=== PATIENT | female | born 1965 | race Caucasian/White ===

== ENCOUNTER 2020-07-15 04:44 | Outpatient (RCR) | payer BC, SELFPAY ==
[2020-07-15] MEDS: Normal Saline Flush 10 ML SYR IVP (10:30)
[2020-07-15] MEDS: NATALIZUMAB 300 MG in Normal Saline 100 ML 115 MG IV (10:37)
== END 2020-07-20 23:59 | disposition home or self-care (01) ==
LOC: INF 04:44
PROVIDERS: Visit Provider Internal Medicine
DX: G35 Multiple sclerosis (principal)
CPT/HCPCS: 96365; J2323

== ENCOUNTER 2020-08-12 04:30 | Outpatient (RCR) | payer BC, SELFPAY ==
[2020-08-12 11:00] VITALS: BP 131/89; PULSE 64; RESP 17; TEMP 36.7; O2SAT 97
[2020-08-12] MEDS: Normal Saline Flush 10 ML SYR IVP ×2 (11:01→11:10)
[2020-08-12] MEDS: NATALIZUMAB 300 MG in Normal Saline 100 ML 115 MG IV (11:09)
[2020-08-12 12:10] VITALS: BP 155/91; PULSE 61; RESP 17; TEMP 37; O2SAT 98
== END 2020-08-19 23:59 | disposition home or self-care (01) ==
LOC: INF 04:30
PROVIDERS: Visit Provider Internal Medicine
DX: G35 Multiple sclerosis (principal)
CPT/HCPCS: 96365; J2323

== ENCOUNTER 2020-09-16 04:40 | Outpatient (RCR) | payer BC, SELFPAY ==
[2020-08-20 00:25] VITALS: BP 155/91; PULSE 61; RESP 17; TEMP 37
[2020-09-16] MEDS: NATALIZUMAB 300 MG in Normal Saline 100 ML 115 MG IV (12:30)
[2020-09-16] MEDS: Normal Saline Flush 10 ML SYR IVP (12:30)
[2020-09-16 12:40] VITALS: BP 152/84; PULSE 58; RESP 17; TEMP 36.6; O2SAT 97
[2020-09-16 13:35] VITALS: BP 134/81; PULSE 62; RESP 16; TEMP 36.6; O2SAT 99
== END 2020-09-19 23:59 | disposition home or self-care (01) ==
LOC: INF 04:40
PROVIDERS: Visit Provider Internal Medicine
DX: G35 Multiple sclerosis (principal)
CPT/HCPCS: 96365; J2323

== ENCOUNTER 2020-10-14 05:57 | Outpatient (RCR) | payer BC, SELFPAY ==
[2020-09-20 00:20] VITALS: BP 134/81; PULSE 62; RESP 16; TEMP 36.6
[2020-10-14 11:08] VITALS: BP 135/90; PULSE 65; RESP 16; TEMP 36.6; O2SAT 100
[2020-10-14] MEDS: NATALIZUMAB 300 MG in Normal Saline 100 ML 115 MG IV (11:14)
[2020-10-14] MEDS: Normal Saline Flush 10 ML SYR IVP (11:14)
[2020-10-14 12:16] VITALS: BP 133/88; PULSE 62; RESP 16; TEMP 36.9; O2SAT 99
== END 2020-10-19 23:59 | disposition home or self-care (01) ==
LOC: INF 05:57
PROVIDERS: Visit Provider Internal Medicine
DX: G35 Multiple sclerosis (principal)
CPT/HCPCS: 96365; J2323

== ENCOUNTER 2020-12-09 04:29 | Outpatient (RCR) | payer OTHER, SELFPAY ==
[2020-11-20 00:06] VITALS: BP 133/88; PULSE 62; RESP 16; TEMP 36.9
[2020-12-09] MEDS: Normal Saline Flush 10 ML SYR IVP (13:35)
[2020-12-09] MEDS: NATALIZUMAB 300 MG in Normal Saline 100 ML 115 MG IV (13:42)
== END 2020-12-20 23:59 | disposition home or self-care (01) ==
LOC: INF 04:29
PROVIDERS: PCP Family Medicine Adult Medicine; Visit Provider Internal Medicine
DX: G35 Multiple sclerosis (principal)
CPT/HCPCS: 36415; 96365; J2323

== ENCOUNTER 2021-01-20 02:47 | Outpatient (RCR) | payer OTHER, SELFPAY ==
[2020-12-21 00:05] VITALS: BP 133/88; PULSE 62; RESP 16; TEMP 36.9
[2021-01-20] MEDS: Normal Saline Flush 10 ML SYR IVP (09:18)
[2021-01-20 09:30] VITALS: BP 143/91; PULSE 59; RESP 16; TEMP 36.6; O2SAT 100
[2021-01-20] MEDS: NATALIZUMAB 300 MG in Normal Saline 100 ML 115 MG IV (09:30)
[2021-01-20 10:41] VITALS: BP 170/101; PULSE 71; RESP 16; TEMP 36.5; O2SAT 100
[2021-01-20 11:01] VITALS: BP 142/92; BP 152/104; PULSE 70; RESP 16; TEMP 36.6; O2SAT 100
== END 2021-02-19 23:59 | disposition home or self-care (01) ==
LOC: INF 02:47
PROVIDERS: PCP Family Medicine Adult Medicine; Visit Provider Internal Medicine
DX: G35 Multiple sclerosis (principal)
CPT/HCPCS: 96365; J2323

== ENCOUNTER 2021-03-10 02:21 | Outpatient (RCR) | payer OTHER, SELFPAY ==
[2021-02-20 00:02] VITALS: BP 142/92; PULSE 70; RESP 16; TEMP 36.6
[2021-03-10 10:17] VITALS: BP 136/84; PULSE 88; RESP 17; O2SAT 99
[2021-03-10] MEDS: NATALIZUMAB 300 MG in Normal Saline 100 ML 115 MG IV (10:29)
[2021-03-10] MEDS: Normal Saline Flush 10 ML SYR IVP (10:30)
[2021-03-10 11:35] VITALS: BP 150/84; RESP 17
== END 2021-03-21 23:59 | disposition home or self-care (01) ==
LOC: INF 02:21
PROVIDERS: PCP Family Medicine Adult Medicine; Visit Provider Internal Medicine
DX: G35 Multiple sclerosis (principal)
CPT/HCPCS: 96365; J2323

== ENCOUNTER 2021-04-20 02:52 | Outpatient (RCR) | payer OTHER, SELFPAY ==
[2021-03-22 00:01] VITALS: BP 150/84; PULSE 88; RESP 17; TEMP 36.6
[2021-04-20 10:40] VITALS: BP 138/70
[2021-04-20] MEDS: Normal Saline Flush 10 ML SYR IVP (10:42)
[2021-04-20] MEDS: NATALIZUMAB 300 MG in Normal Saline 100 ML 115 MG IV (10:51)
[2021-04-20 11:55] VITALS: BP 163/73
== END 2021-04-21 23:59 | disposition home or self-care (01) ==
LOC: INF 02:52
PROVIDERS: PCP Family Medicine Adult Medicine; Visit Provider Internal Medicine
DX: G35 Multiple sclerosis (principal)
CPT/HCPCS: 96365; J2323

== ENCOUNTER 2021-06-09 00:51 | Outpatient (RCR) | payer MEDICAID, SELFPAY ==
[2021-04-22 00:13] VITALS: BP 163/73; PULSE 88; RESP 17; TEMP 36.6
[2021-06-09 10:05] VITALS: BP 130/80
[2021-06-09] MEDS: NATALIZUMAB 300 MG in Normal Saline 100 ML 115 MG IV (10:10)
[2021-06-09] MEDS: Normal Saline Flush 10 ML SYR IVP (10:11)
[2021-06-09 11:20] VITALS: BP 132/84
== END 2021-06-19 23:59 | disposition home or self-care (01) ==
LOC: INF 00:51
PROVIDERS: PCP Family Medicine Adult Medicine; Visit Provider Internal Medicine
DX: G35 Multiple sclerosis (principal)
CPT/HCPCS: 96365; J2323

== ENCOUNTER 2021-07-28 01:12 | Outpatient (RCR) | payer MEDICAID, SELFPAY ==
[2021-07-28 11:33] VITALS: BP 142/78
[2021-07-28] MEDS: NATALIZUMAB 300 MG in Normal Saline 100 ML 115 MG IV (11:42)
[2021-07-28] MEDS: Normal Saline Flush 10 ML SYR IVP (11:42)
[2021-07-28 12:45] VITALS: BP 128/80
== END 2021-08-19 23:59 | disposition home or self-care (01) ==
LOC: INF 01:12
PROVIDERS: PCP Family Medicine Adult Medicine; Visit Provider Internal Medicine
DX: G35 Multiple sclerosis (principal)
CPT/HCPCS: 96365; J2323

== ENCOUNTER 2021-09-08 01:55 | Outpatient (RCR) | payer MEDICAID, SELFPAY ==
[2021-08-20 00:05] VITALS: BP 128/80
[2021-09-08 09:05] VITALS: BP 136/60
[2021-09-08] MEDS: NATALIZUMAB 300 MG in Normal Saline 100 ML 115 MG IV (09:10)
[2021-09-08] MEDS: Normal Saline Flush 10 ML SYR IVP (09:10)
[2021-09-08 10:19] VITALS: BP 128/62
== END 2021-09-19 23:59 | disposition home or self-care (01) ==
LOC: INF 01:55
PROVIDERS: PCP Family Medicine Adult Medicine; Visit Provider Internal Medicine
DX: G35 Multiple sclerosis (principal)
CPT/HCPCS: 96365; J2323

== ENCOUNTER 2021-10-20 02:01 | Outpatient (RCR) | payer MEDICAID, SELFPAY ==
[2021-09-20 00:03] VITALS: BP 128/62
--- OUTSIDE RECORDS SUMMARY | 2021-10-20 02:03 | XMS_ITS | Encounter Summary ---
:1965 Author Organization [facility] [place] [address] Care Team Providers Name Role Phone Steve Saavedra APRN Primary Care Provider [phone] Reason for Visit Reason Onset Date Comments Prior Authorization 07/19/2021 Tysabri Encounter Details Date Type Department Care Team Description 07/19/2021 Telephone Neurology at [facility] Azar Hope, Prior Authorization [facility] (Jemma) [place] [address] NEUROLOGY DEPT. [place], [place] [address] Social History Tobacco Use Types Packs/Day Years Used Date Former Smoker 0.25 10 Quit: 05/23/19 21 Smokeless Tobacco: Never Used Sex Assigned at Date Recorded Not on file documented as of this encounter Miscellaneous Notes Telephone Encounter - Eloise Guo RN - 07/20/2021 2:07 PM EDT PA approval faxed to [facility] on 07/20/21 to fax number [phone]. Telephone Encounter - Eloise Guo RN - 07/20/2021 1:51 PM EDT I phoned Kassidy at [facility] and informed her of approval of Tysabri. I will fax approval over to her once received. Kassidy very thankful. Telephone Encounter - Eloise Guo RN - 07/20/2021 1:51 PM EDT I phoned Twila and informed her of approval of Tysabri. She is very pleased and very thankful. She will call to schedule infusion. Telephone Encounter - Eloise Guo RN - 07/20/2021 1:50 PM EDT Chuck from [place] [employer] phoned back. She states she passed my information along to the pharmacist who reviewed with the medical affairs director and they have approved the Tysabri infusions. Chuck states that she will fax approval over to [phone]. Telephone Encounter - Eloise Guo RN - 07/20/2021 1:46 PM EDT I phoned back Chuck at [place] [employer] regarding PA for Tysabri. I left message on named voice mail asking Chuck talk further with Pharmacist or whomever is denying pt's tysabri. I asked that she let them know that Tysabri should not be stopped abruptly as this could cause her MS relapse symptoms to return and in some cases the symptoms can be worse than before starting the Tysabri. I also left message stating that it can take a month or longer to start a new medication and that with Gilenya it could be even longer because there is strict testing that needs to be done prior to starting (lab work, eye exam, EKG). Message left asking Chuck to discuss further per above. Plan: as above and message left to call back [phone]. Telephone Encounter - Eloise Guo RN - 07/20/2021 12:18 PM EDT Pt phoned back and left message on triage line. She is still very upset over the insurance issue with her jemma. She was scheduled for visit with Dr. Hope 08/04 but feels this is way too long to wait and would like to discuss with much sooner. She also feels that Dr. Hope should be fighting for her with the insurance. Plan: I will forward to Dr. Hope. Telephone Encounter - Eloise Guo RN - 07/20/2021 9:14 AM EDT I had phoned and left pt detailed message after speaking with the insurance. Pt called back and I spoke with her today. She is very upset and refuses to go on oral medication. she stated I would rather go without. She states she looked up the medications and the side effects.She wants a peer to peer to be done. I explained that would need to do this and I did notthink it would make a difference. She wants us to try anyway. I told her she will need to discuss with Dr. Hope. I also recommended she call her insurance to discuss further as they are determining what they will and will not pay for. She is also concerned because she is due today for her infusion. I did send message to Dr. Hope so he is aware and said oral medications are an option and he willdiscuss with her. He is aware she was due today for her infusion. Plan: as above and message forwarded to scheduling departmental secretary to reach out to pt and get visit scheduled. I also phoned [facility] infusion clinic and spoke with Kassidy glass her. She is thankful for call back and update. Telephone Encounter - Eloise Guo RN - 07/19/2021 4:01 PM EDT Chuck from [facility] phoned back. She asks if pt has tried and failed tecfidera, aubagio, or gilenya and stated that gilenya is a requirement unless there is a contraindication. She then asked if pt has highly active RRMS that would require immediate treatment. Message forwarded to Dr. Hope for review and recommendation. Telephone Encounter - Eloise Guo RN - 07/19/2021 3:09 PM EDT Chuck phoned back requiring more information. Perk 12/02/20 note: HPI- In 2002 she started having panic attacks. In March 2004 she had some difficulties walkingand was told by her neurologist in [place], [place], , that she had MS based on her MRIs and confirmed with an LP. She was started on Avonex and one year later had another attack and was switched to Rebif. From 2004 until 2012 she was treated with Rebif and then was put on Tysabri. She has been on Tysabri once a month. Pt also has RRMS. Information given to Chuck and she will report back to insurance pharmacist and get back to me. Telephone Encounter - Eloise Guo RN - 07/19/2021 2:34 PM EDT Chuck from [facility] phoned back. She needed to verify start date. They are unable to approve anything done in May. Chuck informed that pt is scheduled for infusion tomorrow. She will forward to next staff for review and get back to me but feels this will be approved 07/19/21 - 01/19/22 # 5 visits. Will wait for call back. Telephone Encounter - Eloise Guo RN - 07/19/2021 2:19 PM EDT I phoned Mickie back. She states that the pharmacist Chuck from [facility] is waiting to hear from me.I explained I have not received any fax or call from Chuck. Mickie states number to call is [phone]. I attempted to phone chuck back at above number. There was no answer. Message left named voice mail to call back [phone]. Telephone Encounter - Arcelia Paris - 07/19/2021 2:17 PM EDT Mickie is looking to get a call back from Eloise Guo RN regarding the prior authorization for Twila. Mickie states she will be in the office until 230pm today. Telephone Encounter - Eloise Guo RN - 07/19/2021 11:33 AM EDT I phoned Mickie back at [facility]. I informed her PA has been submitted and marked urgent. Mickie statesluis will help with this and will also give insurance a call. Plan; as above and I will update Mickie as able. Telephone Encounter - Frank Seals - 07/19/2021 11:18 AM EDT Mickie, [facility] Infusion Room stated she is returning a call to Amber. Mickie stated she would like to help with the PA for this patient and would like Amber to call her at [phone] when she has a moment. Telephone Encounter - Betsy Pagan - 07/19/2021 9:51 AM EDT Patient is calling in stating that she needs her infusion tomorrow, but infusion center is refusing stating that our office did not send a prior auth. Patient is very irate and would like to speak withsomeone right away. Please call to advise. documented in this encounter Plan of Treatment Upcoming Encounters Date Type Specialty Care Team Description 10/30/2021 Appointment Radiology Azar Hope MD [facility] NEUROLOGY DEPT. [place], [place] [address] (Wo rk) 11/17/2021 Office Visit Neurology Azar Hope MD [facility] NEUROLOGY DEPT. [place], [place] [address] (Wo rk) documented as of this encounter Visit Diagnoses Not on filedocumented in this encounter Care Teams Sales Consultant Residential Manager Relationship Specialty Start Date End Date Steve Saavedra APRN PCP - General Family Medicine 10/04/20 [address] [place] [address] documented as of this encounter
--- OUTSIDE RECORDS SUMMARY | 2021-10-20 02:03 | XMS_ITS | Encounter Summary ---
:1965 Author Organization [facility] [place] [address] Care Team Providers Name Role Phone Steve Saavedra APRN Primary Care Provider [phone] Reason for Visit Reason Onset Date Comments Prior Authorization 07/19/2021 Jemma FELIZ Encounter Details Date Type Department Care Team Description 07/19/2021 Telephone Neurology at [facility] Azar Hope, Prior Authorization [facility] (Jemma F[place]IZ) [place] [address] NEUROLOGY DEPT. [place], [place] [address] Social History Tobacco Use Types Packs/Day Years Used Date Former Smoker 0.25 10 Quit: 05/23/19 21 Smokeless Tobacco: Never Used Sex Assigned at Date Recorded Not on file documented as of this encounter Miscellaneous Notes Telephone Encounter - Eloise Guo RN - 07/19/2021 4:03 PM EDT See other telephone note from today. It is regarding Jemma FELIZ. I have been communication with insurance. See previous note as well. Telephone Encounter - Francia Girard - 07/19/2021 3:37 PM EDT Copied from CRM #[id number]. Topic: Specialty Dept CRMs - Prior Auth Non-Med >> Jul 19, 2021 9:46 AM Kamille Sultana wrote: Prior Auth Non Agricultural Agent Jayy Relationship (if other than patient-full name): Twila Sapp Test Name/Type of Infusion (Copy and Paste from e-DH): Jemma Name of Facility that Test/Infusion will be Done At: [facility] infusion clinic City/Town & State of Facility: [address] [place], [place] [address] Date test is scheduled for infusion scheduled for tomorrow 07/20/21 When is PA needed bytoday Name of Medical Insurance Carrier: [place] [facility] Insurance Carrier ID #: [id number] Insurance Carrier Phone #: not in chart Patient informed of the 7 to 10 business day turnaround time. >> Jul 19, 2021 12:15 PM Alisia Caputo wrote: Sarah from [place] [employer] calling to speak with Amber regarding PA. She states she received it,but has a question. Amber unavailable at time of call. Please return call to Amber's direct line [phone] Telephone Encounter - Eloise Guo RN - 07/19/2021 11:06 AM EDT Jemma FELIZ completed on PA standard request form and marked urgent and faxed back to [place] [employer] on 07/19/21. documented in this encounter Plan of Treatment Upcoming Encounters Date Type Specialty Care Team Description 10/30/2021 Appointment Radiology Azar Hope MD [facility] NEUROLOGY DEPT. [place], [place] [address] (Wo wilver) 11/17/2021 Office Visit Neurology Azar Hope MD [facility] NEUROLOGY DEPT. [place], [place] [address] (Bart pettit) documented as of this encounter Visit Diagnoses Not on filedocumented in this encounter Care Teams Learning Technologies Specialist Relationship Specialty Start Date End Date Steve Saavedra APRN PCP - General Family Medicine 10/04/20 [address] [place] [address] documented as of this encounter
--- OUTSIDE RECORDS SUMMARY | 2021-10-20 02:03 | XMS_ITS | Encounter Summary ---
:1965 Author Organization [place] [address] Care Team Providers Name Role Phone Steve Saavedra APRN Primary Care Provider [phone] Reason for Visit Reason Onset Date Comments Other 07/26/2021 Tysabri Support [place] herring Encounter Details Date Type Department Care Team Description 07/26/2021 Telephone Neurology at [facility] Azar Hope, Other ( [facility] MD Services) [place] [address] NEUROLOGY DEPT. [place], [place] [address] (Wo rk) Social History Tobacco Use Types Packs/Day Years Used Date Former Smoker 0.25 10 Quit: 05/23/19 21 Smokeless Tobacco: Never Used Sex Assigned at Date Recorded Not on file documented as of this encounter Miscellaneous Notes Telephone Encounter - Eloise Guo RN - 07/26/2021 1:[address] Jayy elaine to complete and submit reauthorization questionnaire on line. This has been completed and submitted 07/26/21. Telephone Encounter - Emeli Noble RN - 07/26/2021 9:59 AM EDT Copied from CRM #[id number]. Topic: Specialty Dept CRMs - Form Request >> Jul 26, 2021 9:20 AM Reena Seals wrote: Patient is requesting to have form completed Specialist Azar Hope MD Relationship (if other than patient-full name): [place] - Jemma Support Services Type of paperwork: Tysabri reauthorization questionaire Provider: Azar Hope MD Faxed to (what number): [phone] When does patient need to have form completed by: 08/06/2021 - but required as soon as possible for discussion points. After completion please: Fax to: [phone] documented in this encounter Plan of Treatment Upcoming Encounters Date Type Specialty Care Team Description 10/30/2021 Appointment Radiology Azar Hope MD [facility] NEUROLOGY DEPT. [place], [place] [address] (Wo rk) 11/17/2021 Office Visit Neurology Azar Hope MD [facility] NEUROLOGY DEPT. [place], [place] [address] (Wo rk) documented as of this encounter Visit Diagnoses Not on filedocumented in this encounter Care Teams Apple Press Operator Relationship Specialty Start Date End Date Steve Saavedra APRN PCP - General Family Medicine 10/04/20 [address] [place] [address] documented as of this encounter
--- OUTSIDE RECORDS SUMMARY | 2021-10-20 02:03 | XMS_ITS | Encounter Summary ---
:1965 Author Organization [facility] [place] [address] Care Team Providers Name Role Phone Steve Saavedra APRN Primary Care Provider [phone] Reason for Visit Reason Onset Date Comments Other 07/21/2021 Tysabri infusionorde rs Encounter Details Date Type Department Care Team Description 07/21/2021 Telephone [place] [facility] [place], Other ([facility] MD infusionorders) [place] [address] NEUROLOGY DEPT. [place], [place] [address] (Wo rk) Social History Tobacco Use Types Packs/Day Years Used Date Former Smoker 0.25 10 Quit: 05/23/19 21 Smokeless Tobacco: Never Used Sex Assigned at Date Recorded Not on file documented as of this encounter Miscellaneous Notes Telephone Encounter - Eloise Guo RN - 07/21/2021 1:26 PM EDT Tysabri infusion orders faxed to: [facility] clinic for Tysabri infusions Faxed on 07/21/21 I phoned infusion clinic and advised them orders on way over. Plan: as above and no further action required at this time. documented in this encounter Plan of Treatment Upcoming Encounters Date Type Specialty Care Team Description 10/30/2021 Appointment Radiology Azar Hope MD [facility] NEUROLOGY DEPT. [place], [place] [address] (Wo rk) 11/17/2021 Office Visit Neurology Azar Hope MD [facility] NEUROLOGY DEPT. [place], [place] [address] (Wo rk) documented as of this encounter Visit Diagnoses Not on filedocumented in this encounter Care Teams President Mortgage Company Relationship Specialty Start Date End Date Steve Saavedra APRN PCP - General Family Medicine 10/04/20 [address] [place] [address] documented as of this encounter
--- OUTSIDE RECORDS SUMMARY | 2021-10-20 02:04 | XMS_ITS | Encounter Summary ---
:1965 Author Organization [facility] Address [facility] [address] [place] [address] Care Team Providers Name Role Phone Steve Saavedra APRN Primary Care Provider [phone] Reason for Visit Reason Onset Date Comments Questions 06/01/2021 Encounter Details Date Type Department Care Team Description 06/01/2021 Telephone Neurology at [facility] Azar Hope MD Questions [facility] summa healthe [facility] [place] [address] NEUROLOGY DEPT. [phone] [place], [place] [address] (Wo rk) Social History Tobacco Use Types Packs/Day Years Used Date Former Smoker 0.25 10 Quit: 05/23/19 21 Smokeless Tobacco: Never Used Sex Assigned at Date Recorded Not on file documented as of this encounter Miscellaneous Notes Telephone Encounter - Eloise Guo RN - 06/01/2021 3:21 PM EST I attempted to phone pt back. There was no answer. Message left on infusion line to call back [phone]. Telephone Encounter - Frank Seals - 06/01/2021 9:57 AM EST Call Center / [place] Message - General Issue Call Provider patient sees in Clinic: Azar Hope Caller and relationship (if other than patient-full name): n/a Company and position if other than patient or family: [facility]assidy [facility] infusion clinic Call back number: [phone] Ok to leave a message: yes Reason for call: Kassidy stated the last time she spoke with the Pt the Pt stated in April she would be getting new insurance and gave Kassidy a new member number. Kassidy stated she check the Pt's chart and noticed the insurance has not changed and she is wondering if the clinic has had any co nversations with the Pt regarding a change in insurance as a new PA will need to be done if there balta change. Please call Kassidy to discuss. Disposition of Call (choose one and remove others): ??? Routine Message sent to the Nurse Nurse/Purchasing Analyst contacted via: Message: y Call: n Pager: n documented in this encounter Plan of Treatment Upcoming Encounters Date Type Specialty Care Team Description 10/30/2021 Appointment Radiology Azar Hope MD [facility] NEUROLOGY DEPT. [place], [place] [address] (Wo rk) 11/17/2021 Office Visit Neurology Azar Hope MD [facility] NEUROLOGY DEPT. [place], [place] [address] (Wo rk) documented as of this encounter Visit Diagnoses Not on filedocumented in this encounter Care Teams Telephone Order Clerk Room Service Relationship Specialty Start Date End Date Steve Saavedra APRN PCP - General Family Medicine 10/04/20 [address] [place] [address] documented as of this encounter
--- OUTSIDE RECORDS SUMMARY | 2021-10-20 02:04 | XMS_ITS | Encounter Summary ---
:1965 Author Organization [facility] Address [address] [place] [address] Care Team Providers Name Role Phone Unknown, Provider Primary Care Provider Encounter Details Date Type Department Care Team Description 04/04/2021 Lab Requisition [facility] Sam Morocho Encounter for Pathology & MD Quan screening for Laboratory Medicine [address] of colon [address] [place] [address] [phone] Social History Tobacco Use Types Packs/Day Years Used Date Never Assessed Sex Assigned at Date Recorded Not on file documented as of this encounter Plan of Treatment Not on filedocumented as of this encounter Procedures Procedure Name Priority Date/Time Associated Diagnosis Comme nts SURGICAL PATHOLOGY Today 04/04/2021 8:03 EST Encounter for R esults for this screening for procedure are in malignant neoplasm the resul ts of colon section. documented in this encounter Results SURGICAL PATHOLOGY (04/04/2021 8:03 EST) Note to Patient The following [facility] MEDICAL pathology results CENTER have been interpreted LABORATORY by your pathologist SERVICES and may be available to you before your health provider has had the opportunity to review them. Please allow time for your provider to receive these results and explore management options, if applicable. Final Diagnosis A. 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 CENTER LABORATORY B. COLON, DESCENDING, POLYP, BIOPSY: SERV ICES - Tubular adenoma. - Deeper sections x3 examined. Attestation There was significant [facility] MEDICAL Electr onically resident/fellow CENTER signed by Ab colton Perdue involvement in the LABORATORY Arleen Head on diagnostic evaluation SERVICES 2020 at 0930 of this case. By the signature below, the attending physician certifies that they have personally conducted a gross and/or microscopic examination of the described specimens and rendered or confirmed the above diagnosis. Clinical History Screening [facility] MEDICAL colonoscopy; clinical CENTER diagnosis code: LABORATORY Z12.11 SERVICES Gross Description A. [facility] MEDICAL Received in formalin aur[place] d with proper patient identification (initials S, J) and transverse colon polyp, hot snare is a betancourt-pink lobulated polypoid structure measuring 2.7 x 0.4 x 0.3 cm. Specimen CENTER is serially sectioned and submitted entirely in A1-A2 . LABORATORY SERVICES B. Received in formalin aurora d with proper patient identification (initials S, J) and descending colon polyp, cold bx forcep is a light betancourt tissue measuring 0.3 x 0.2 x 0.1 cm. Submitted intact in B1. TRINI PAGE(ASCP) 04/04/2021 19:00 Resident/Fellow: Damien Wing, [facility] LABORATORY SERVICES Performing Lab [facility] LAB [facility] LABORATORY SERVICES Scanned Images [facility] LABORATORY SERVICES Specimen Tissue - Descending colon structure (bod y structure) Tissue specimen (specimen) - Descending colon structure (body structure) Performing Organization Address City/State/ZIP Code Phon e Number [facility] LABORATORY [address] [place] [address] SERVICES documented in this encounter Visit Diagnoses Diagnosis Encounter for screening for malignant ne oplasm of colon Special screening for malignant neoplasm s, colon documented in this encounter Care Teams Events Manager Relationship Specialty Start Date End Date Unknown, Provider, PCP - General 02/20/21 documented as of this encounter
--- OUTSIDE RECORDS SUMMARY | 2021-10-20 02:04 | XMS_ITS | Encounter Summary ---
:1965 Author Organization [facility] [place] [address] Care Team Providers Name Role Phone Steve Saavedra APRN Primary Care Provider [phone] Reason for Visit Reason Onset Date Comments Request For Record 10/28/2020 Encounter Details Date Type Department Care Team Description 10/28/2020 Telephone [place]rology [place] [facility] Azar Hope MD Request For Record [facility] [place] [address] NEUROLOGY DEPT. [phone] [place], [place] [address] (Wo rk) Social History Tobacco Use Types Packs/Day Years Used Date Never Assessed Sex Assigned at Date Recorded Not on file documented as of this encounter Miscellaneous Notes Telephone Encounter - Monica Ferguson - 10/28/2020 3:58 PM EDT Patient stated her last Tysabri infusion was on 10/14/2020 She had her MRI done at [facility] in [place], [place]. She said she has a copy that she will bring to her appt, or we are welcome to contact them for a copy. Telephone Encounter - Stella Carmichael - 10/28/2020 3:06 PM EDT Patient has an upcoming appointment scheduled with Dr. Hope. Patient contacted to identify when her last Tysabri infusion was, per the request of Dr. Hope. Patient to also confirm where MRI Brain and Spine imaging has been performed. I requested imaging from [facility]. documented in this encounter Plan of Treatment Upcoming Encounters Date Type Specialty Care Team Description 10/30/2021 Appointment Radiology Azar Hope MD [facility] NEUROLOGY DEPT. [place], [place] [address] (Wo rk) 11/17/2021 Office Visit Neurology Azar Hope MD [facility] NEUROLOGY DEPT. [place], [place] [address] (Wo rk) documented as of this encounter Visit Diagnoses Not on filedocumented in this encounter Care Teams Dispatcher Bus [employer] Trol[employer] Relationship Specialty Start Date End Date Steve Saavedra APRN PCP - General Family Medicine 10/04/20 [address] [place] [address] documented as of this encounter
--- OUTSIDE RECORDS SUMMARY | 2021-10-20 02:04 | XMS_ITS | Encounter Summary ---
:1965 Author Organization [facility] [place] [address] Care Team Providers Name Role Phone Steve Saavedra APRN Primary Care Provider [phone] Reason for Visit Reason Onset Date Comments Medication Refill 12/30/2020 Encounter Details Date Type Department Care Team Description 12/30/2020 Telephone Neurology at [facility] Azar Hope MD Medication Refill [facility] [place] [address] NEUROLOGY DEPT. [phone] [place], [place] [address] (Wo rk) Social History Tobacco Use Types Packs/Day Years Used Date Former Smoker 0.25 10 Quit: 05/23/19 21 Smokeless Tobacco: Never Used Sex Assigned at Date Recorded Not on file documented as of this encounter Miscellaneous Notes Telephone Encounter - Eloise Guo RN - 12/30/2020 9:53 AM EDT New prescription generated for provider review and signature. Telephone Encounter - Nida Valle - 12/30/2020 9:19 AM EDT Call Center / Rotor Assembler Message Prescription Refill Request Clinical Rotor Assembler message Provider patient sees in Clinic: Jayy Caller and relationship (if other than patient-full name): self Call back Number: [phone] Ok to leave a message: Any issues needing to be addressed prior to medication refill? (ex: dose increase, not at pharmacy): Name of Med: baclofen (Lioresal) 10 mg Tablet Strength of Pills: 10 mg Dosing Directions: take 2 tablets by mouth every morning 1 tablet AT NOON and 2 at bedtime How Patient is Currently Taking Medication: as directed 30 or 90 Day Supply: 30 [facility]: [facility] Last Appointment: Next Appointment: 03-10-2021 Is Patient out of Medication?: yes documented in this encounter Plan of Treatment Upcoming Encounters Date Type Specialty Care Team Description 10/30/2021 Appointment Radiology Azar Hope MD [facility] NEUROLOGY DEPT. [place], [place] [address] (Wo rk) 11/17/2021 Office Visit Neurology Azar Hope MD [facility] NEUROLOGY DEPT. [place], [place] [address] (Wo rk) documented as of this encounter Visit Diagnoses Not on filedocumented in this encounter Care Teams Marketing Designer Relationship Specialty Start Date End Date Steve Saavedra APRN PCP - General Family Medicine 10/04/20 [address] [place] [address] documented as of this encounter
--- OUTSIDE RECORDS SUMMARY | 2021-10-20 02:04 | XMS_ITS | Encounter Summary ---
:1965 Author Organization [facility] [place] [address] Care Team Providers Name Role Phone Unavailable Primary Care Provider Unavailable Encounter Details Date Type Department Care Team Description 03/08/2018 Ancillary Procedure Radiology Library at Lul Hope [facility] [address] NEUROLOGY DEPT. [phone] [place], [place] [address] (Wo rk) Social History Tobacco Use Types Packs/Day Years Used Date Never Assessed Sex Assigned at Date Recorded Not on file documented as of this encounter Plan of Treatment Upcoming Encounters Date Type Specialty Care Team Description 10/30/2021 Appointment Radiology Azar Hope MD [facility] NEUROLOGY DEPT. [place], [place] [address] (Wo rk) 11/17/2021 Office Visit Neurology Azar Hope MD [facility] NEUROLOGY DEPT. [place], [place] [address] (Wo rk) documented as of this encounter Procedures Procedure Name Priority Date/Time Associated Diagnosis Comme nts FILM LIBRARY Routine 03/08/2018 12:00 AM Results for this STORAGE ONLY MR EST procedure ar e in HEAD the results section. documented in this encounter Results Film Library- Storage Only MR Head (03/08/2018 12:00 AM EST) Specimen (Source) Anatomical Location Collection Method / Collectio n Time Received Time / Laterality Volume Narrative RAD - 05/01/2021 3:36 PM EST This exam is auto-finalizing. It's purpo se is for storage only. Azar Hope MD IMG FILM LIBRARY ORDERABLES Performing Organization Address City/State/ZIP Code Phon e Number RAD EL[facility] [place], [place] documented in this encounter Visit Diagnoses Not on filedocumented in this encounter
--- OUTSIDE RECORDS SUMMARY | 2021-10-20 02:04 | XMS_ITS | Encounter Summary ---
:1965 Author Organization [facility] Address [facility] [place] [address] Care Team Providers Name Role Phone Steve Saavedra APRN Primary Care Provider [phone] Reason for Visit Reason Onset Date Comments TeleHealth 02/01/2021 Encounter Details Date Type Department Care Team Description 02/01/2021 Telephone Neurology at [facility] [place] [address] NEUROLOGY DEPT. [phone] [place], [place] [address] (Wo rk) Social History Tobacco Use Types Packs/Day Years Used Date Former Smoker 0.25 10 Quit: 05/23/19 21 Smokeless Tobacco: Never Used Sex Assigned at Date Recorded Not on file documented as of this encounter Miscellaneous Notes Telephone Encounter - Mayelin Jeffers RN - 02/01/2021 11:38 AM EDT Spoke to this patient??by phone to review??their??medications and allergies prior to their??upcomingtele-appointment with the Neurology??provider. ??Medications and allergies reviewed, verified and updated as needed. documented in this encounter Plan of Treatment Upcoming Encounters Date Type Specialty Care Team Description 10/30/2021 Appointment Radiology Azar Hope MD [facility] NEUROLOGY DEPT. [place], [place] [address] (Wo rk) 11/17/2021 Office Visit Neurology Azar Hope MD [facility] NEUROLOGY DEPT. [place], [place] [address] (Wo rk) documented as of this encounter Visit Diagnoses Not on filedocumented in this encounter Care Teams Math Interventionist Relationship Specialty Start Date End Date Steve Saavedra APRN PCP - General Family Medicine 10/04/20 [address] [place] [address] documented as of this encounter
--- OUTSIDE RECORDS SUMMARY | 2021-10-20 02:04 | XMS_ITS | Encounter Summary ---
:1965 Author Organization [facility] [place] [address] Care Team Providers Name Role Phone Steve Saavedra APRN Primary Care Provider [phone] Encounter Details Date Type Department Care Team Description 06/27/20[facility] cosmetic procedure [address] [place] [address] [facility]DER[facility] [place], [place] [address] Social History Tobacco Use Types Packs/Day Years Used Date Former Smoker 0.25 10 Quit: 05/23/19 21 Smokeless Tobacco: Never Used Sex Assigned at Date Recorded Not on file documented as of this encounter Progress Notes Adriana Davenport MD - 06/27/2021 9:40 AM EST Images from the original note were not included. DEPARTMENT OF DERMATOLOGY Medical Dermatology Clinic Provider: Adriana Davenport MD Patient's preferred name Sangita Preferred contact method for results [x]Phone []myD-H []Letter Detailed phone message OK? Yes Are there any other people with whom we may discuss your care? Yes Past Medical History Date, location, treatment Melanoma No Dysplastic nevi No SCC No BCC No AKs No UV Exposure & Protection + history of blistering sunburn Other relevant past medical history No Family History Details - Unknown Adopted Melanoma [facility] Other relevant family history Social History Occupation: Works from home Hobbies: Other: Pre-Procedure Screening Details Allergy to lidocaine, epinephrine, Dermabond, chlorhexidine, or adhesives No Bleeding disorder or blood thinners No Implanted devices (Pacemaker, defibrillator, deep brain stimulator, cochlear implant) No History of Present Illness: Twila Sapp is a 55 y.o. Patient returns to clinic today for SK removal. Last visit at Dermatology: 11/10/2020 Last visit with this provider: 11/10/2020 Medications: Reviewed in eD-H Allergies: Reviewed in eD-H Skin Examination: Focused skin examination of the face was normal with the exception of the findings below. Assessment/Plan #. Seborrheic Keratoses - Stuck on, waxy papules on the bilateral cheeks - Discussed benign nature of lesions and provided reassurance. No treatment necessary at this time. - Patient elects to proceed with cryotherapy cosmetically today. Procedure: Destruction of lesion(s) with cryotherapy (LN2). Location(s): As noted above Number: 10 Discussed procedure and expectations including risks and benefits. Verbal consent obtained. Treated with LN2. There were no complications; Patient tolerated the procedure well. Post-procedure expectations and wound care were reviewed. -Paid $100 Other: ??? N/A RTC: PRN - Patient paid $100 today for SK removal []Note routed to alumnae secretary []Recall placed in scheduling system []Appointment scheduled at checkout Scribe attestation: Shahnaz Childs [facility] has performed the documentation for this encounter in the presence of and acting as a scribe for Adriana Davenport MD. I performed the above scribed service and agree with the accuracy of the documentation in this encounter. Reviewed and signed by: Adriana Davenport MD Dermatology [facility] Patient seen and evaluated with staff land title examiner: Everardo Joy MD Dermatology [facility] Everardo Joy MD - 06/27/2021 9:40 AM EST I directly supervised Dr. Davenport during this office visit. Dr. Davenport presented the history and physical exam to me. I, then, saw and examined this patient with Dr. Davenport . We reviewed the history and pertinent details and I confirmed the physical findings. I agree with the details of the history and physical exam as documented in Dr. Davenport's note. EVERARDO JOY MD Staff Physician documented in this encounter Plan of Treatment Upcoming Encounters Date Type Specialty Care Team Description 10/30/2021 Appointment Radiology Azar Hope MD [facility] NEUROLOGY DEPT. [place], [place] [address] (Wo rk) 11/17/2021 Office Visit Neurology Azar Hope MD [facility] NEUROLOGY DEPT. [place], [place] [address] (Wo rk) documented as of this encounter Visit Diagnoses Diagnosis Encounter for cosmetic procedure documented in this encounter Care Teams Brake Holder Relationship Specialty Start Date End Date Steve Saavedra APRN PCP - General Family Medicine 10/04/20 [address] [place] [address] documented as of this encounter
--- OUTSIDE RECORDS SUMMARY | 2021-10-20 02:04 | XMS_ITS | Encounter Summary ---
:1965 Author Organization [facility] Address [address] [place] [address] Care Team Providers Name Role Phone Steve Saavedra APRN Primary Care Provider [phone] Reason for Visit Reason Onset Date Comments Appointment 03/31/2021 Encounter Details Date Type Department Care Team Description 03/31/2021 Telephone Neurology at [facility] Azar Hope MD Appointment [facility] [place] [address] NEUROLOGY DEPT. [phone] [place], [place] [address] (Wo rk) Social History Tobacco Use Types Packs/Day Years Used Date Former Smoker 0.25 10 Quit: 05/23/19 21 Smokeless Tobacco: Never Used Sex Assigned at Date Recorded Not on file documented as of this encounter Miscellaneous Notes Telephone Encounter - Stella Carmichael - 04/07/2021 9:14 AM EST Patient states that she has not been able to obtain copies of her imaging yet, but will continue working on this. documented in this encounter Plan of Treatment Upcoming Encounters Date Type Specialty Care Team Description 10/30/2021 Appointment Radiology Azar Hope MD [facility] NEUROLOGY DEPT. [place], [place] [address] (Wo rk) 11/17/2021 Office Visit Neurology Azar Hope MD [facility] NEUROLOGY DEPT. [place], [place] [address] (Wo rk) documented as of this encounter Visit Diagnoses Not on filedocumented in this encounter Care Teams Hydroelectric Production Manager Relationship Specialty Start Date End Date Steve Saavedra APRN PCP - General Family Medicine 10/04/20 [address] [place] [address] documented as of this encounter
--- OUTSIDE RECORDS SUMMARY | 2021-10-20 02:04 | XMS_ITS | Encounter Summary ---
:1965 [place] [address] Care Team Providers Name Role Phone Unavailable Primary Care Provider Unavailable Encounter Details Date Type Department Care Team Description 09/23/2020 Hospital [place] [address] Social History Tobacco Use Types Packs/Day Years Used Date Never Assessed Sex Assigned at Date Recorded Not on file documented as of this encounter Plan of Treatment Upcoming Encounters Date Type Specialty Care Team Description 10/30/2021 Appointment Radiology Azar Hope MD [facility] NEUROLOGY DEPT. [place], [place] [address] (Wo rk) 11/17/2021 Office Visit Neurology Azar Hope MD [facility] NEUROLOGY DEPT. [place], [place] [address] (Wo rk) documented as of this encounter Procedures Procedure Name Priority Date/Time Associated Comments Diagnosis EMBLEM MAKER CYTOLOGY Routine 09/23/2020 12:00 Results for this INTERPRETATION PM EDT procedure are in the results section. EMBLEM MAKER CYTOLOGY FINAL Routine 09/23/2020 12:00 Resul ts for this REPORT PM EDT procedure are i n the results section. documented in this encounter Results EMBLEM MAKER Cytology Interpretation (09/23/2020 12:00 PM EDT) [facility] Method Time Signature Magazine Keeper Cytology Rejected EDDIE Interpretation [facility] Comment: Magazine Keeper Cytology Final Report Acces lisset: [id number] Magazine Keeper Cytology Comment Present EDDIE HITC [facility] Endocervical Component Rejected EDDIE HI [facility] Specimen Anatomical Collection Method Collection Time Receive d Time (Source) Location / / Volume Laterality AP Specimen 09/23/2020 12:00 09/28/2020 PM EDT 10:30 AM EDT Resulting Agency Comment Spec In Lab / WKS Steve Saavedra APRN PATHOLOGY/CYTOLOGY ORDERABL ES Performing Organization Address City/State/ZIP [place] [address] [facility] [address] Magazine Keeper Cytology Final Report (09/23/2020 12:00 PM EDT) Component Value Ref Test Analysis Performed At [facility] gist Range Method Time Signature Magazine Keeper Cytology [id number] ? Location: [facility] Final Report [place] The signing pathologist has (i) examined the relevant preparation(s) for the [facility] specimen(s) and (ii) rendered or confirmed the diagnosis(es) . HOSPITAL LABORATORY . ? Magazine Keeper Final DIAGNOSIS Rejected Specimen submitted is rejected. For consensus guidelines for the management of c ervical cancer screening test results, please see: ?? http://www.asccp.org . Electronically signed by: ?Douglas MEREDITH(ASCP)Shahnaz Verified: ??09/28/2020 10:30 ??Instrument Technician Helper Performed at: ??-[facility] Dept. of Pathology, [place], [place] DISCUSSION Specimen was mislabeled. ??P atient listed was Mitzy Leon GABRIEL [birth year] when the correct patient was Thong Sapp 69 ?per [employer] (CAP) accreditation requirements and [facility] Laboratory Policies #1371 ? Specimen Rejection and Exception Chart Job Aid-Lab oratory ?? and #1374 Specimen Identification and Labeling Policy -Laboratory. HPV RESULTS HPV testing either not indicated or not requested by malicki an. STATEMENT OF ADEQUACY Specimen submitted is rejected. See discussion. CLINICAL INFORMATION HPV Option: ? Reflex HPV CT/NG Option: ? no Preparation: ?Liquid Based Pap Specimen Source: ?Cervical Endocervical LBP LMP: ?unknown Hysterectomy?: ?No ?: ?No ?: ?No I.U.D.?: ?No Pelvic Radiation: ? No Hist Abnl Pap/Biopsy?: ??No Prior EMBLEM MAKER Therapy?: ? No Hist of HPV Vaccine?: ?? No ICD Diagnosis: ?Z12.4 Encounter for screening for malignant neoplasm of cervix Clinical Data, Significant Therapy and Clinical Impression ? ? : ?? _ This Pap Test has been evalu ated with the assistance of the [employer] Pap Test Imaging System. Note: The Pap test is a screening test for cervical cancer with an inherent false-negative rate dependent upon several variables. For further information please contact the [facility] Laboratory. Reference: Jennie NOGUEIRA. Sameer lity Assurance of Pap Smear Results. In: Radha BS, Joey HH, ed. ??The Pap Smear. [place]: Zafar, 2002: 71-77. Specimen (Source) Anatomical Collection Method Collection Time Re ceived Time Location / / Volume Laterality 09/23/2020 12:00 PM EDT Resulting Agency Comment Spec In Lab / WKS Steve Saavedra APRN PATHOLOGY/CYTOLOGY ORDERABL ES Performing Organization Address City/State/[place] [address] documented in this encounter Visit Diagnoses Not on filedocumented in this encounter
--- OUTSIDE RECORDS SUMMARY | 2021-10-20 02:04 | XMS_ITS | Clinical Summary ---
:1965 Author Organization [facility] Address [address] [place] [address] Care Team Providers Name Role Phone Unknown, Provider Primary Care Provider Social History Tobacco Use Types Packs/Day Years Used Date Never Assessed Sex Assigned at Date Recorded Not on file Plan of Treatment Health Maintenance Due Date Last Done Comments Hepatitis C Screen 1965 COVID-19 Vaccine (1) 12/05/1972 Insurance Payer Benefit Plan Subscriber ID Effective Phone Address Typ e / Group Dates [place] [id number] Effective for [phone] [address] all dates [address] [place] [address] [address]Home) [place] [address] Twila Sapp Personal/Family Self 1965 [address]Home) [place] [address] Twila Sapp Personal/Family Self 1965 [address]Home) [place] [address] Twila Sapp Personal/Family Self 1965 [address]Home) [place] [address] Twila Sapp Personal/Family Self 1965 [address]Home) [place] [address] Twila Sapp Personal/Family Self 1965 [address] (Home) [place] [address] wTila Sapp Personal/Family Self 1965 [address] (Home) [place] [address] Twila Sapp Personal/Family Self 1965 [address] (Home) [place] [address] Care Teams Insulation Worker Relationship Specialty Start Date End Date Unknown, Provider, PCP - General 02/20/21
--- OUTSIDE RECORDS SUMMARY | 2021-10-20 02:04 | XMS_ITS | Encounter Summary ---
:1965 Author Organization [facility] [place] [address] Care Team Providers Name Role Phone Unavailable Primary Care Provider Unavailable Encounter Details Date Type Department Care Team Description 05/19/2020 Ancillary Procedure Radiology Library at Lul Hope [facility] [place] [address] NEUROLOGY DEPT. [phone] [place], [place] [address] (Wo rk) Social History Tobacco Use Types Packs/Day Years Used Date Never Assessed Sex Assigned at Date Recorded Not on file documented as of this encounter Plan of Treatment Upcoming Encounters Date Type Specialty Care Team Description 10/30/2021 Appointment Radiology Azar Hope MD [facility] NEUROLOGY DEPT. [place], [place] [address] (Wo rk) 11/17/2021 Office Visit Neurology Azar Hope MD [facility] NEUROLOGY DEPT. [place], [place] [address] (Wo rk) documented as of this encounter Procedures Procedure Name Priority Date/Time Associated Comments Diagnosis FILM LIBRARY STORAGE Routine 05/19/2020 12:00 AM Results for this ONLY ULTRASOUND EST procedure ar e in STUDY the results section. documented in this encounter Results Film Library- Storage Only Ultrasound Study (05/19/2020 12:00 AM EST) Specimen (Source) Anatomical Location Collection Method / Collectio n Time Received Time / Laterality Volume Narrative RAD - 05/01/2021 3:40 PM EST This exam is auto-finalizing. It's purpo se is for storage only. Azar Hope MD IM FILM LIBRARY ORDERABLES Performing Organization Address City/State/ZIP Code Phon e Number RAD EL[facility] [place], [place] documented in this encounter Visit Diagnoses Not on filedocumented in this encounter
--- OUTSIDE RECORDS SUMMARY | 2021-10-20 02:04 | XMS_ITS | Encounter Summary ---
:1965 Author Organization [facility] [place] [address] Care Team Providers Name Role Phone Steve Saavedra APRN Primary Care Provider [phone] Reason for Visit Reason Onset Date Comments Other 12/09/2020 Encounter Details Date Type Department Care Team Description 12/09/2020 Telephone [facility]rology [place] [facility] [place]ar Hope MD [place] [address] NEUROLOGY DEPT. [phone] [place], [place] [address] (Wo rk) Social History Tobacco Use Types Packs/Day Years Used Date Former Smoker 0.25 10 Quit: 05/23/19 21 Smokeless Tobacco: Never Used Sex Assigned at Date Recorded Not on file documented as of this encounter Miscellaneous Notes Telephone Encounter - Eloise Guo RN - 12/19/2020 3:20 PM EDT Tysabri orders complete and signed by Dr. Hope and faxed to [facility] on 12/19/20 to fax number [phone]. Copy sent to be scanned to chart. Telephone Encounter - Eloise Guo RN - 12/09/2020 2:28 PM EDT Per 12/02/20 office note: Plan- -Will check FAYE virus, CBC, and CMP -will ask Amber Guo to arrange Tysabri q6 weeks -will get f/u MRIs in March ?? F/u 3 months. I phoned Luh and informed her that pt will receive Tysabri every [address] Hope will be ableto sign orders next week and once signed I will fax them over. Plan: as above and Luh agrees with plan and verbalizes understanding. Telephone Encounter - Rasheeda Fitzgerald - 12/09/2020 1:59 PM EDT Call Center / [place] Message - General Issue Call Provider patient sees in Clinic: Jayy Caller and relationship (if other than patient-full name): Luh from [facility] Call back number: [phone] Ok to leave a message: y Reason for call: Luh calling because they need a new order for patients Tysabri infusion faxed to [phone] and to clarify whether the patient is to get it every 4 weeks or every 6 weeks. Disposition of Call (choose one and remove others): ??? Routine Message sent to the Nurse: Nurse/[place] contacted via: Message: y Call:n Pager: n documented in this encounter Plan of Treatment Upcoming Encounters Date Type Specialty Care Team Description 10/30/2021 Appointment Radiology Azar Hope MD [facility] NEUROLOGY DEPT. [place], [place] [address] (Wo wilver) 11/17/2021 Office Visit Neurology Azar Hope MD [facility] NEUROLOGY DEPT. [place], [place] [address] (Bart pettit) documented as of this encounter Visit Diagnoses Not on filedocumented in this encounter Care Teams Production Technologist Relationship Specialty Start Date End Date Steve Saavedra APRN PCP - General Family Medicine 10/04/20 [address] [place] [address] documented as of this encounter
--- OUTSIDE RECORDS SUMMARY | 2021-10-20 02:04 | XMS_ITS | Encounter Summary ---
:1965 Author Organization [facility] [place] [address] Care Team Providers Name Role Phone Steve Saavedra APRN Primary Care Provider [phone] Reason for Referral Diagnostic Test (Routine) - Authorized Specialty Diagnoses / Procedures Referred By Contact Refer red To Contact Radiology Diagnoses Relapsing remitting multiple sclerosis Azar Hope MD [facility] Rad Mri Procedures MRI Brain wo Contrast [facility] [place] [address] [place] [address] Referral ID Status Reason Start Expiration Visits Visits Date Date Requested Authorized [id number] Authorized Specialty 10/30/2021 11/29/2021 1 1 Service Requested Encounter Details Date Type Department Care Team Description 05/12/2021 TH Visit Neurology at [facility] Azar Hope Relapsing remitting (TeleHealth) [facility] MD Isreal multiple sclerosis [facility] [address] NEUROLOGY DEPT. [phone] [place], [place] [address] Social History Tobacco Use Types Packs/Day Years Used Date Former Smoker 0.25 10 Quit: 05/23/19 21 Smokeless Tobacco: Never Used Sex Assigned at Date Recorded Not on file documented as of this encounter Progress Notes Azar Hope MD - 05/12/2021 10:00 AM EST [id number] 25 minutes Telehealth visit because of pandemic Patient on Tysabri q6 weeks at [facility] doing generally well. Just got a new dog, an Camb[place]ian [place] female named Tarah, and this has been a very positive addition to her life. She and her mother feel that her cognitive function is worsening. Will check an MRI later this year at the time of her followup visit with me. She also needs a f/u FAYE virus test. Otherwise she is doing well. She had a fall but this was on ice and she did not hurt herself. FUV including MRI and JCV test in six months at [facility]. MD Emeka Olguin Professor of Neurology Department of Neurology [facility] and [address] [address] At least 15 minutes of this 25 minute Telehealth visit were spent in discussion of the topics outlined in the note above including diagnosis, therapy, and management issues. documented in this encounter Plan of Treatment Upcoming Encounters Date Type Specialty Care Team Description 10/30/2021 Appointment Radiology Azar Hope MD [facility] NEUROLOGY DEPT. [place], [place] [address] (Wo rk) 11/17/2021 Office Visit Neurology Azar Hope MD [facility] NEUROLOGY DEPT. [place], [place] [address] (Wo rk) Scheduled Orders Name Type Priority Associated Diagnoses Order S chedule FAYE Virus Antibody Lab Routine Relapsing remitting Exp ected: 11/09/2021, multiple sclerosis Expires: 05/11/2022 MRI Brain wo Contrast Imaging Routine Relapsing remitting Expected: 11/09/2021, multiple sclerosis Expires: 11/09/2022 documented as of this encounter Visit Diagnoses Diagnosis Relapsing remitting multiple sclerosis Multiple sclerosis documented in this encounter Care Teams Oiler And Greaser Relationship Specialty Start Date End Date Steve Saavedra APRN PCP - General Family Medicine 10/04/20 [address] [place] [address] documented as of this encounter
--- OUTSIDE RECORDS SUMMARY | 2021-10-20 02:04 | XMS_ITS | Encounter Summary ---
:1965 Author Organization [facility] Address [address] [place] [address] Care Team Providers Name Role Phone Steve Saavedra APRN Primary Care Provider [phone] Encounter Details Date Type Department Care Team Description 03/03/2021 Telephone Neurology at [facility] Azar Hope MD [facility] [place] [address] NEUROLOGY DEPT. [phone] [place], [place] [address] (Wo rk) Social History Tobacco Use Types Packs/Day Years Used Date Former Smoker 0.25 10 Quit: 05/23/19 21 Smokeless Tobacco: Never Used Sex Assigned at Date Recorded Not on file documented as of this encounter Miscellaneous Notes Telephone Encounter - Azar Hope MD - 03/03/2021 10:28 AM EST This call was from Amber Guo to confirm that it was OK for this patient to continue on Tysabri, andfor her to complete a TOUCH program form and sign it in my absence. I gave her permission to do that. documented in this encounter Plan of Treatment Upcoming Encounters Date Type Specialty Care Team Description 10/30/2021 Appointment Radiology Azar Hope MD [facility] NEUROLOGY DEPT. [place], [place] [address] (Wo rk) 11/17/2021 Office Visit Neurology Azar Hope MD [facility] NEUROLOGY DEPT. [place], [place] [address] (Wo rk) documented as of this encounter Visit Diagnoses Not on filedocumented in this encounter Care Teams Shipmaster Relationship Specialty Start Date End Date Steve Saavedra APRN PCP - General Family Medicine 10/04/20 [address] [place] [address] documented as of this encounter
--- OUTSIDE RECORDS SUMMARY | 2021-10-20 02:04 | XMS_ITS | Encounter Summary ---
:1965 Author Organization [facility] Address [address] [place] [address] Care Team Providers Name Role Phone Steve Saavedra APRN Primary Care Provider [phone] Reason for Visit Reason Onset Date Comments Medication Refill 12/30/2020 Encounter Details Date Type Department Care Team Description 12/30/2020 Refill Neurology at [facility] Azar Hope MD [facility] [place] [address] NEUROLOGY DEPT. [phone] [place], [place] [address] (Wo rk) Social History Tobacco Use Types Packs/Day Years Used Date Former Smoker 0.25 10 Quit: 05/23/19 21 Smokeless Tobacco: Never Used Sex Assigned at Date Recorded Not on file documented as of this encounter Plan of Treatment Upcoming Encounters Date Type Specialty Care Team Description 10/30/2021 Appointment Radiology Azar Hope MD [facility] NEUROLOGY DEPT. [place], [place] [address] (Wo rk) 11/17/2021 Office Visit Neurology Azar Hope MD [facility] NEUROLOGY DEPT. [place], [place] [address] (Bart rk) documented as of this encounter Visit Diagnoses Not on filedocumented in this encounter Care Teams Design Maintenance Engineer Relationship Specialty Start Date End Date Steve Saavedra APRN PCP - General Family Medicine 10/04/20 [address] [place] [address] documented as of this encounter
--- OUTSIDE RECORDS SUMMARY | 2021-10-20 02:04 | XMS_ITS | Encounter Summary ---
:1965 Author Organization [facility] [place] [address] Care Team Providers Name Role Phone Steve Saavedra APRN Primary Care Provider [phone] Reason for Visit Consultation (Routine) - Closed Specialty Diagnoses / Procedures Referred By Contact Refer red To Contact Dermatology Diagnoses Melanocytic nevi, unspecified Steve Saavedra, [facility] Dermatology SCOURER [address] [place] [address] [place] [address] Referral ID Status Reason Start Date Expiration Date Visits V isits Requested Authorized [id number] Closed Consult, Test 09/26/2020 09/26/2021 6 & Treat [facility] PCP Updated and/or Approved Encounter Details Date Type Department Care Team Description 11/10/2020 Office Visit Dermatology at Adriana Martin S [facility] ([address]he[address] MD keratosis) [address] [place] [address] [facility]-DERMATOLOGY [place], [place] [address] Social History Tobacco Use Types Packs/Day Years Used Date Never Assessed Sex Assigned at Date Recorded Not on file documented as of this encounter Progress Notes Adriana Davenport MD - 11/10/2020 10:20 AM EDT Images from the original note were not included. DEPARTMENT OF DERMATOLOGY Medical Dermatology Clinic Note Provider: Adriana Davenport MD Patient's preferred name Sangita Preferred contact method for results []myDH []Letter [x]Phone: Y Detailed phone message OK? Y Are there any other people with whom we may discuss your care? Y PAST MEDICAL HISTORY If no, type N. If yes, type date, location, treatment Melanoma N Dysplastic nevi N SCC N BCC N AKs N UV Exposure & Protection + history of blistering sunburn Other relevant past medical history (i.e. eczema, psoriasis, birthmarks, immunosuppression) N FAMILY HISTORY If yes, details Melanoma ? adopted NMSC ? adopted Other relevant family history ? adopted SOCIAL HISTORY Occupation: line out worker Other: PRE-PROCEDURE SCREENING If no, type N. If yes, include details below Allergy to lidocaine, epinephrine, Dermabond, chlorhexidine, or adhesives: N Bleeding disorder or blood thinners: N Implanted devices (Pacemaker, defibrillator, deep brain stimulator, cochlear implant): N History of Present Illness: Twila Sapp is a 54 y.o. year old. Patient is referred to the clinicat the request of Steve Saavedra for brown spots on her face. -Patient has had brown spots on bilateral cheeks that are completely asymptomatic. Review of Systems: General: Feeling well. Skin: No other skin concerns. Medications: Reviewed in eD-H Allergies: Reviewed in eD-H Skin Examination: Focused skin examination of the face was normal with the exception of the findings below Assessment/Plan #. Seborrheic Keratoses - Scattered brown and flesh colored waxy nummular stuck on plaques located on the face - Reassured of benign nature. - Discussed removal of these plaques but it would be cosmetic and insurance will not cover. - Patient was quoted $100 for 10. - Patient will think about this and schedule an appointment. Other items to document in the assessment/plan if relevant ??? Sun protection discussed (protective clothing and SPF30+ broad-spectrum sunscreen) ??? OTC skin products discussed RTC: Note routed to medical assistant secretary for 2-[address] removal of SK's bilateral cheeks. Scribe attestation: TODD Dubon who has performed the documentation for this encounterin the presence of and acting as a scribe for Adriana Davenport MD. I performed the above scribed service and agree with the accuracy of the documentation in this encounter. Reviewed and signed by: Adriana Davenport MD Dermatology [facility] Patient seen and evaluated with staff chief revenue officer: Erika Baldwin MD Department of Dermatology [facility] Erika Baldwin MD - 11/10/2020 10:20 AM EDT I directly supervised Dr. Davenport during this office visit. Dr. Davenport presented the history and physical exam to me. I, then, saw and examined this patient with Dr. Davenport . We reviewed the history and pertinent details and I confirmed the physical findings. I agree with the details of the history and physical exam as documented in Dr. Davenport's note. ERIKA BALDWIN MD Staff Physician documented in this encounter Plan of Treatment Upcoming Encounters Date Type Specialty Care Team Description 10/30/2021 Appointment Radiology Azar Hope MD [facility] NEUROLOGY DEPT. [place], [place] [address] (Wo wilver) 11/17/2021 Office Visit Neurology Azar Hope MD [facility] NEUROLOGY DEPT. [place], [place] [address] (Wo wilver) documented as of this encounter Visit Diagnoses Diagnosis SK (seborrheic keratosis) Other seborrheic keratosis documented in this encounter Care Teams Patient Services Technician Relationship Specialty Start Date End Date Steve Saavedra APRN PCP - General Family Medicine 10/04/20 [address] [place] [address] documented as of this encounter
--- OUTSIDE RECORDS SUMMARY | 2021-10-20 02:04 | XMS_ITS | Encounter Summary ---
:1965 Author Organization [facility] Address [facility] [address] [place] [address] Care Team Providers Name Role Phone Steve Saavedra APRN Primary Care Provider [phone] Reason for Visit Reason Onset Date Comments Medication Refill 07/10/2021 Encounter Details Date Type Department Care Team Description 07/10/2021 Refill Neurology at [facility] Azar Hope [place] [address] NEUROLOGY DEPT. [phone] [place], [place] [address] (Wo rk) Social History Tobacco Use Types Packs/Day Years Used Date Former Smoker 0.25 10 Quit: 05/23/19 21 Smokeless Tobacco: Never Used Sex Assigned at Date Recorded Not on file documented as of this encounter Miscellaneous Notes Telephone Encounter - Angelita Tapia CMA - 07/10/2021 1:44 PM EDT Surescript request for : baclofen Last rx: 12/31/20 Quantity: 150 Refills: 5 Last appt: 05/12/21 Next appt: 11/17/21 documented in this encounter Plan of Treatment Upcoming Encounters Date Type Specialty Care Team Description 10/30/2021 Appointment Radiology Azra Hope MD [facility] NEUROLOGY DEPT. [place], [place] [address] (Wo rk) 11/17/2021 Office Visit Neurology Azar Hope MD [facility] NEUROLOGY DEPT. [place], [place] [address] (Wo rk) documented as of this encounter Visit Diagnoses Not on filedocumented in this encounter Care Teams Pressurizer Relationship Specialty Start Date End Date Steve Saavedra APRN PCP - General Family Medicine 10/04/20 [address] [place] [address] documented as of this encounter
--- OUTSIDE RECORDS SUMMARY | 2021-10-20 02:04 | XMS_ITS | Encounter Summary ---
:1965 Author Organization [facility] [address] Care Team Providers Name Role Phone Unknown Primary Care Provider Unavailable Reason for Visit Reason Onset Date Comments Referral 07/27/2020 Encounter Details Date Type Department Care Team Description 07/27/2020 Telephone Neurology at [facility] Krist[facility] Scott [facility] [place] [address] Social History Tobacco Use Types Packs/Day Years Used Date Never Assessed Sex Assigned at Date Recorded Not on file documented as of this encounter Miscellaneous Notes Telephone Encounter - Kristin Scott - 07/27/2020 9:23 AM EDT Caller: self If not PT/Relation to PT: self Best number to reach caller: [phone] Reason for the Call: referral. This agent relayed as of 07/27/2020 referral has not been received. This agent relayed 6-8 week scheduling process. To check on the status of their referral: If not, what is the reason for their call: schedule. If their referral has not been reviewed by the department, ask these questions below so the process can get started sooner: Has the patient seen another Neurologist: YES If so, when and where: Dr Lou[facility] Has the patient had any imagining done: YES If so, when and where: MRI at [facility] Telephone Encounter - Elisabeth-Anjelica Seals - 07/27/2020 9:23 AM EDT Twila calling in again to check on status of referral sent on 07/22/20 from previous neurologist. This agent did not see referral or any notes in pt's chart. This agent advised pt to have RMD resend fax. Telephone Encounter - Fran Luke - 07/27/2020 9:23 AM EDT Patient called back to see if referral had been received. Referring provider has been unable to get through to fax # [phone] to resend referral. documented in this encounter Plan of Treatment Upcoming Encounters Date Type Specialty Care Team Description 10/30/2021 Appointment Radiology Azar Hope MD [facility] NEUROLOGY DEPT. [place], [place] [address] (Wo rk) 11/17/2021 Office Visit Neurology Azar Hope MD [facility] NEUROLOGY DEPT. [place], [place] [address] (Wo rk) documented as of this encounter Visit Diagnoses Not on filedocumented in this encounter Care Teams Paperhanger Apprentice Relationship Specialty Start Date End Date Unknown PCP - General 09/26/20 10/03/20 None documented as of this encounter
--- OUTSIDE RECORDS SUMMARY | 2021-10-20 02:04 | XMS_ITS | Encounter Summary ---
:1965 [place] [address] Care Team Providers Name Role Phone Steve Saavedra APRN Primary Care Provider Encounter Details Date Type Department Care Team Description 11/11/2020 Telephone Dermatology at [facility] Adriana Davenport MD [address] [place] [address] [facility] [phone] [place], [place] [address] (Wo rk) Social History Tobacco Use Types Packs/Day Years Used Date Never Assessed Sex Assigned at Date Recorded Not on file documented as of this encounter Miscellaneous Notes Telephone Encounter - Britney Hendrix - 11/11/2020 10:45 AM EDT Called Twila Arleen Sekou to schedule cosmetic SK removal (quoted $100) with DR. DAVENPORT around December 01. Left voicemail with callback of [phone] documented in this encounter Plan of Treatment Upcoming Encounters Date Type Specialty Care Team Description 10/30/2021 Appointment Radiology Azar Hope MD [facility] NEUROLOGY DEPT. [place], [place] [address] (Wo rk) 11/17/2021 Office Visit Neurology Azar Hope MD [facility] NEUROLOGY DEPT. [place], [place] [address] (Wo rk) documented as of this encounter Visit Diagnoses Not on filedocumented in this encounter Care Teams Public Speaker Relationship Specialty Start Date End Date Steve Saavedra APRN PCP - General Family Medicine 10/04/20 [address] [place] [address] documented as of this encounter
[2021-10-20] MEDS: Normal Saline Flush 10 ML SYR IVP ×2 (09:26→10:35)
[2021-10-20] MEDS: NATALIZUMAB 300 MG in Normal Saline 100 ML 115 MG IV (09:26)
== END 2021-11-19 23:59 | disposition home or self-care (01) ==
LOC: INF 02:01
PROVIDERS: PCP Family Medicine Adult Medicine; Visit Provider Internal Medicine
DX: G35 Multiple sclerosis (principal)
CPT/HCPCS: 96365; J2323

== ENCOUNTER 2021-12-01 00:53 | Outpatient (RCR) | payer MEDICAID, SELFPAY ==
[2021-11-20 00:13] VITALS: BP 128/62
[2021-12-01 09:35] VITALS: BP 113/75
[2021-12-01] MEDS: Normal Saline Flush 10 ML SYR IVP ×2 (09:44→10:02)
[2021-12-01] MEDS: NATALIZUMAB 300 MG in Normal Saline 100 ML 115 MG IV (10:02)
[2021-12-01 11:10] VITALS: BP 122/82
== END 2021-12-20 23:59 | disposition home or self-care (01) ==
LOC: INF 00:53
PROVIDERS: PCP Family Medicine Adult Medicine; Visit Provider Internal Medicine
DX: G35 Multiple sclerosis (principal)
CPT/HCPCS: 96365; J2323

== ENCOUNTER 2022-01-12 00:39 | Outpatient (RCR) | payer MEDICAID, SELFPAY ==
[2021-12-21 00:06] VITALS: BP 122/82
[2022-01-12] MEDS: NATALIZUMAB 300 MG in Normal Saline 100 ML 115 MG IV (10:08)
[2022-01-12] MEDS: Normal Saline Flush 10 ML SYR IVP (10:08)
[2022-01-12 10:13] VITALS: BP 124/76
[2022-01-12 11:15] VITALS: BP 138/80
== END 2022-01-19 23:59 | disposition home or self-care (01) ==
LOC: INF 00:39
PROVIDERS: PCP Family Medicine Adult Medicine; Visit Provider Internal Medicine
DX: G35 Multiple sclerosis (principal)
CPT/HCPCS: 96365; J2323

== ENCOUNTER 2022-02-23 01:18 | Outpatient (RCR) | payer MEDICAID, SELFPAY ==
[2022-01-20 00:05] VITALS: BP 138/80
[2022-02-23 10:10] VITALS: BP 116/68
[2022-02-23 10:11] VITALS: BP 118/68
[2022-02-23] MEDS: NATALIZUMAB 300 MG in Normal Saline 100 ML 115 MG IV (10:52)
[2022-02-23 11:59] VITALS: BP 124/80
[2022-02-23] MEDS: Normal Saline Flush 10 ML SYR IVP (12:00)
== END 2022-03-21 23:59 | disposition home or self-care (01) ==
LOC: INF 01:18
PROVIDERS: PCP Family Medicine Adult Medicine; Visit Provider Internal Medicine
DX: G35 Multiple sclerosis (principal)
CPT/HCPCS: 96365; J2323

== ENCOUNTER 2022-04-13 00:50 | Outpatient (RCR) | payer MEDICAID, SELFPAY ==
[2022-03-22 00:02] VITALS: BP 124/80
[2022-04-13] MEDS: Normal Saline Flush 10 ML SYR IVP (10:07)
[2022-04-13] MEDS: NATALIZUMAB 300 MG in Normal Saline 100 ML 115 MG IV (10:07)
== END 2022-04-21 23:59 | disposition home or self-care (01) ==
LOC: INF 00:50
PROVIDERS: PCP Family Medicine Adult Medicine; Visit Provider Internal Medicine
DX: G35 Multiple sclerosis (principal)
CPT/HCPCS: 96365; J2323

== ENCOUNTER 2022-05-25 00:42 | Outpatient (RCR) | payer MEDICAID, SELFPAY ==
[2022-04-22 00:02] VITALS: BP 124/80
[2022-05-25 10:10] VITALS: BP 120/62
[2022-05-25] MEDS: Normal Saline Flush 10 ML SYR IVP (10:18)
[2022-05-25] MEDS: NATALIZUMAB 300 MG in Normal Saline 100 ML 115 MG IV (10:24)
[2022-05-25 11:35] VITALS: BP 116/64
== END 2022-06-19 23:59 | disposition home or self-care (01) ==
LOC: INF 00:42
PROVIDERS: PCP Family Medicine Adult Medicine; Visit Provider Internal Medicine
DX: G35 Multiple sclerosis (principal)
CPT/HCPCS: 96365; J2323

== ENCOUNTER 2022-07-06 01:14 | Outpatient (RCR) | payer MEDICAID, SELFPAY ==
[2022-06-20 00:01] VITALS: BP 116/64
[2022-07-06 10:13] VITALS: BP 110/62
[2022-07-06] MEDS: NATALIZUMAB 300 MG in Normal Saline 100 ML 115 MG IV (10:20)
[2022-07-06] MEDS: Normal Saline Flush 10 ML SYR IVP (10:21)
== END 2022-07-20 23:59 | disposition home or self-care (01) ==
LOC: INF 01:14
PROVIDERS: PCP Family Medicine Adult Medicine; Visit Provider Internal Medicine
DX: G35 Multiple sclerosis (principal)
CPT/HCPCS: 96365; J2323

== ENCOUNTER 2022-08-17 00:59 | Outpatient (RCR) | payer MEDICAID, SELFPAY ==
[2022-07-21 00:15] VITALS: BP 110/62
[2022-08-17 10:43] VITALS: BP 112/64
[2022-08-17] MEDS: NATALIZUMAB 300 MG in Normal Saline 100 ML 115 MG IV (10:54)
[2022-08-17] MEDS: Normal Saline Flush 10 ML SYR IVP (10:54)
[2022-08-17 11:55] VITALS: BP 110/72
== END 2022-08-19 23:59 | disposition home or self-care (01) ==
LOC: INF 00:59
PROVIDERS: PCP Family Medicine Adult Medicine; Visit Provider Internal Medicine
DX: G35 Multiple sclerosis (principal)
CPT/HCPCS: 96365; J2323

== ENCOUNTER 2022-09-28 00:55 | Outpatient (RCR) | payer MEDICAID, SELFPAY ==
[2022-08-20 00:06] VITALS: BP 110/72
[2022-09-28 10:16] VITALS: BP 120/80; PULSE 60
[2022-09-28] MEDS: NATALIZUMAB 300 MG in Normal Saline 100 ML 115 MG IV (10:27)
[2022-09-28] MEDS: Normal Saline Flush 10 ML SYR IVP (10:27)
[2022-09-28 11:35] VITALS: BP 123/84; PULSE 58
== END 2022-10-19 23:59 | disposition home or self-care (01) ==
LOC: INF 00:55
PROVIDERS: PCP Family Medicine Adult Medicine; Visit Provider Nurse Practitioner Family
DX: G35 Multiple sclerosis (principal)
CPT/HCPCS: 96365; J2323

== ENCOUNTER 2022-11-09 01:18 | Outpatient (RCR) | payer MEDICAID, SELFPAY ==
[2022-10-20 00:01] VITALS: BP 123/84; PULSE 58
[2022-11-09] MEDS: NATALIZUMAB 300 MG in Normal Saline 100 ML 115 MG IV (10:06)
[2022-11-09] MEDS: Normal Saline Flush 10 ML SYR IVP (10:09)
[2022-11-09 10:14] VITALS: BP 124/62
== END 2022-11-19 23:59 | disposition home or self-care (01) ==
LOC: INF 01:18
PROVIDERS: PCP Family Medicine Adult Medicine; Visit Provider Nurse Practitioner Family
DX: G35 Multiple sclerosis (principal)
CPT/HCPCS: 96365; J2323

== ENCOUNTER 2022-12-21 02:18 | Outpatient (RCR) | payer MEDICAID, SELFPAY ==
[2022-11-20 00:10] VITALS: BP 124/62; PULSE 58
[2022-12-21 10:20] VITALS: BP 128/90; PULSE 59
[2022-12-21] MEDS: Normal Saline Flush 10 ML SYR IVP (10:21)
[2022-12-21] MEDS: NATALIZUMAB 300 MG in Normal Saline 100 ML 115 MG IV (10:44)
[2022-12-21 11:52] VITALS: BP 135/89; PULSE 66
== END 2023-01-19 23:59 | disposition home or self-care (01) ==
LOC: INF 02:18
PROVIDERS: PCP Family Medicine Adult Medicine; Visit Provider Nurse Practitioner Family
DX: G35 Multiple sclerosis (principal)
CPT/HCPCS: 96365; J2323

== ENCOUNTER 2023-02-01 04:06 | Outpatient (RCR) | payer MEDICAID, SELFPAY ==
[2023-01-20 00:10] VITALS: BP 135/89; PULSE 66
[2023-02-01] MEDS: Normal Saline Flush 10 ML SYR IVP (10:02)
[2023-02-01] MEDS: NATALIZUMAB 300 MG in Normal Saline 100 ML 115 MG IV (10:12)
== END 2023-02-19 23:59 | disposition home or self-care (01) ==
LOC: INF 04:06
PROVIDERS: PCP Family Medicine Adult Medicine; Visit Provider Nurse Practitioner Family
DX: G35 Multiple sclerosis (principal)
CPT/HCPCS: 96365; J2323

== ENCOUNTER 2023-03-22 01:25 | Outpatient (RCR) | payer MEDICAID, SELFPAY ==
[2023-02-20 00:07] VITALS: BP 135/89; PULSE 66
[2023-03-22] MEDS: NATALIZUMAB 300 MG in Normal Saline 100 ML 115 MG IV (10:21)
[2023-03-22] MEDS: Normal Saline Flush 10 ML SYR IVP (10:21)
== END 2023-04-21 23:59 | disposition home or self-care (01) ==
LOC: INF 01:25
PROVIDERS: PCP Family Medicine Adult Medicine; Visit Provider Nurse Practitioner Family
DX: G35 Multiple sclerosis (principal)
CPT/HCPCS: 96365; J2323

== ENCOUNTER 2023-05-03 03:33 | Outpatient (RCR) | payer MEDICAID, SELFPAY ==
[2023-04-22 00:14] VITALS: BP 135/89; PULSE 66
[2023-05-03] MEDS: NATALIZUMAB 300 MG in Normal Saline 100 ML 115 MG IV (11:50)
[2023-05-03] MEDS: Normal Saline Flush 10 ML SYR IVP (11:54)
== END 2023-05-22 23:59 | disposition home or self-care (01) ==
LOC: INF 03:33
PROVIDERS: PCP Family Medicine Adult Medicine; Visit Provider Nurse Practitioner Family
DX: G35 Multiple sclerosis (principal)
CPT/HCPCS: 96365; J2323

== ENCOUNTER 2023-06-14 00:58 | Outpatient (RCR) | payer MEDICAID, SELFPAY ==
[2023-05-23 00:21] VITALS: BP 135/89; PULSE 66
[2023-06-14 10:00] VITALS: BP 122/81; PULSE 67; RESP 16; TEMP 36.4; O2SAT 98
[2023-06-14] MEDS: NATALIZUMAB 300 MG in Normal Saline 100 ML 115 MG IV (10:10)
[2023-06-14] MEDS: Normal Saline Flush 10 ML SYR IVP (10:18)
[2023-06-14 11:10] VITALS: BP 142/93; PULSE 70; O2SAT 98
[2023-07-26 15:36] LABS: Stratify JCV Antibody Negative (Negative)
== END 2023-06-20 23:59 | disposition home or self-care (01) ==
LOC: INF 00:58
PROVIDERS: Psychiatry & Neurology Neurology; PCP Family Medicine Adult Medicine; Visit Provider Nurse Practitioner Family
DX: G35 Multiple sclerosis (principal)
CPT/HCPCS: 36415; 96365; J2323

== ENCOUNTER 2023-08-20 05:35 | Outpatient (RCR) | payer MEDICAID, SELFPAY ==
[2023-08-20 10:01] VITALS: BP 124/80; PULSE 68
[2023-08-20] MEDS: NATALIZUMAB 300 MG in Normal Saline 100 ML 115 MG IV (10:51)
[2023-08-20] MEDS: Normal Saline Flush 10 ML SYR IVP (10:52)
[2023-08-20 11:56] VITALS: BP 129/85; PULSE 66
== END 2023-08-20 23:59 | disposition home or self-care (01) ==
LOC: INF 05:35
PROVIDERS: PCP Family Medicine Adult Medicine; Visit Provider Family Medicine
DX: G35 Multiple sclerosis (principal)
CPT/HCPCS: 96365; J2323

== ENCOUNTER 2023-10-01 04:57 | Outpatient (RCR) | payer MEDICAID, SELFPAY ==
[2023-08-21 00:34] VITALS: BP 129/85; PULSE 66
[2023-10-01 09:50] VITALS: BP 116/73; PULSE 62
[2023-10-01] MEDS: NATALIZUMAB 300 MG in Normal Saline 100 ML 115 MG IV (10:50)
[2023-10-01] MEDS: Normal Saline Flush 10 ML SYR IVP (10:51)
[2023-10-01 11:45] VITALS: BP 138/88; PULSE 61
== END 2023-10-20 23:59 | disposition home or self-care (01) ==
LOC: INF 04:57
PROVIDERS: PCP Family Medicine Adult Medicine; Visit Provider Family Medicine
DX: G35 Multiple sclerosis (principal)
CPT/HCPCS: 96365; J2323

== ENCOUNTER 2023-11-18 01:48 | Outpatient (RCR) | payer MEDICAID, SELFPAY ==
[2023-10-21 00:02] VITALS: BP 129/85; PULSE 66
[2023-11-18] MEDS: Normal Saline Flush 10 ML SYR IVP (09:11)
[2023-11-18] MEDS: NATALIZUMAB 300 MG in Normal Saline 100 ML 115 MG IV (09:11)
== END 2023-11-20 23:59 | disposition home or self-care (01) ==
LOC: INF 01:48
PROVIDERS: PCP Family Medicine Adult Medicine; Visit Provider Family Medicine
DX: G35 Multiple sclerosis (principal)
CPT/HCPCS: 96365; J2323

== ENCOUNTER 2023-12-24 02:31 | Outpatient (RCR) | payer MEDICAID, SELFPAY ==
[2023-11-21 00:05] VITALS: BP 129/85; PULSE 66
[2023-12-24 09:13] VITALS: BP 118/82; PULSE 61; RESP 16; TEMP 36.9; O2SAT 97
[2023-12-24] MEDS: Normal Saline Flush 10 ML SYR IVP (09:13)
[2023-12-24] MEDS: NATALIZUMAB 300 MG in Normal Saline 100 ML 115 MG IV (10:09)
[2023-12-24 11:12] VITALS: BP 144/85; PULSE 61; RESP 16; TEMP 36.9; O2SAT 97
== END 2024-01-20 23:59 | disposition home or self-care (01) ==
LOC: INF 02:31
PROVIDERS: PCP Family Medicine Adult Medicine; Visit Provider Family Medicine
DX: G35 Multiple sclerosis (principal)
CPT/HCPCS: 96365; J2323

== ENCOUNTER 2024-02-06 02:35 | Outpatient (RCR) | payer MEDICAID, SELFPAY ==
[2024-01-21 00:02] VITALS: BP 129/85; PULSE 66; RESP 16; TEMP 36.9
[2024-02-06 09:15] VITALS: BP 120/85
[2024-02-06] MEDS: NATALIZUMAB 300 MG in Normal Saline 100 ML 115 MG IV (09:19)
[2024-02-06] MEDS: Normal Saline Flush 10 ML SYR IVP (09:19)
[2024-02-06 10:20] VITALS: BP 128/86
[2024-03-03 13:00] LABS: Stratify JCV Antibody See Comments (Negative)
== END 2024-02-20 23:59 | disposition home or self-care (01) ==
LOC: INF 02:35
PROVIDERS: PCP Family Medicine Adult Medicine; Visit Provider Psychiatry & Neurology Neurology
DX: G35 Multiple sclerosis (principal); Z51.81 Encounter for therapeutic drug level monitoring
CPT/HCPCS: 36415; 96365; J2323

== ENCOUNTER 2024-03-24 02:15 | Outpatient (RCR) | payer MEDICAID, SELFPAY ==
[2024-03-22 00:19] VITALS: BP 129/85; PULSE 66; RESP 16; TEMP 36.9
[2024-03-24] MEDS: NATALIZUMAB 300 MG in Normal Saline 100 ML 115 MG IV (10:12)
[2024-03-24] MEDS: Normal Saline Flush 10 ML SYR IVP (10:12)
[2024-03-24 10:17] LABS: ALT 24 U/L (14-59); AST 15 U/L (15-37); Albumin 3.6 g/dL (3.4-5.0); Alkaline Phosphatase 82 U/L (46-116); Anion Gap 9.4 mmol/L (3-11); BUN 13 mg/dL (7-18); Bilirubin, Total 0.56 mg/dL (0.2-1.0); CO2 31.6 mmol/L (21.0-32.0); CREATININE 0.8 mg/dL (0.55-1.02); Calcium 8.7 mg/dL (8.5-10.1); Chloride 102 mmol/L (98-107); Estimated GFR 86.42 (mL/min/1.73m2); Glucose 120 mg/dL (74-106); Potassium 3.4 mmol/L (3.5-5.1); Sodium 143 mmol/L (136-145)
== END 2024-04-21 23:59 | disposition home or self-care (01) ==
LOC: INF 02:15
PROVIDERS: Psychiatry & Neurology Neurology; PCP Family Medicine Adult Medicine; Visit Provider Family Medicine
DX: G35 Multiple sclerosis (principal)
CPT/HCPCS: 36415; 80053; 96365; J2323

== ENCOUNTER 2024-05-01 00:45 | Outpatient (RCR) | payer MEDICAID, SELFPAY ==
[2024-04-22 00:10] VITALS: BP 129/85; PULSE 66; RESP 16; TEMP 36.9
[2024-05-01] MEDS: NATALIZUMAB 300 MG in Normal Saline 100 ML 115 MG IV (09:51)
[2024-05-01] MEDS: Normal Saline Flush 10 ML SYR IVP (09:52)
[2024-05-01 09:55] VITALS: BP 125/89; PULSE 64; TEMP 36.7; O2SAT 95
[2024-05-01 10:55] VITALS: BP 138/86; PULSE 63; TEMP 36.7; O2SAT 96
== END 2024-05-22 23:59 | disposition home or self-care (01) ==
LOC: INF 00:45
PROVIDERS: PCP Family Medicine Adult Medicine; Visit Provider Family Medicine
DX: G35 Multiple sclerosis (principal)
CPT/HCPCS: 96365; J2323

== ENCOUNTER 2024-06-12 00:36 | Outpatient (RCR) | payer MEDICAID, SELFPAY ==
[2024-06-12 09:50] VITALS: BP 125/80; PULSE 67
[2024-06-12] MEDS: NATALIZUMAB 300 MG in Normal Saline 100 ML 115 MG IV (10:08)
[2024-06-12] MEDS: Normal Saline Flush 10 ML SYR IVP (10:08)
[2024-06-12 11:10] VITALS: BP 129/84; PULSE 68
[2024-06-17 22:45] LABS: Index Value 0.16; JCV Antibody NEGATIVE
== END 2024-06-19 23:59 | disposition home or self-care (01) ==
LOC: INF 00:36
PROVIDERS: Psychiatry & Neurology Neurology; PCP Family Medicine Adult Medicine; Visit Provider Family Medicine
DX: G35 Multiple sclerosis (principal)
CPT/HCPCS: 36415; 86711; 96365; J2323

== ENCOUNTER 2024-07-24 00:55 | Outpatient (RCR) | payer MEDICAID, SELFPAY ==
[2024-07-24] MEDS: NATALIZUMAB 300 MG in Normal Saline 100 ML 115 MG IV (10:20)
[2024-07-24] MEDS: Normal Saline Flush 10 ML SYR IVP (10:21)
[2024-07-24 10:28] VITALS: BP 108/71; PULSE 65; RESP 18; TEMP 36.8; O2SAT 97
[2024-07-24] MEDS: Normal Saline Flush 5 ML SYR IVP (10:44)
[2024-07-24 11:37] VITALS: BP 124/83; PULSE 67; RESP 20; TEMP 36.8; O2SAT 96
== END 2024-08-19 23:59 | disposition home or self-care (01) ==
LOC: INF 00:55
PROVIDERS: PCP Family Medicine Adult Medicine; Visit Provider Family Medicine
DX: G35 Multiple sclerosis (principal)
CPT/HCPCS: 96365; J2323

== ENCOUNTER 2024-09-03 01:33 | Outpatient (RCR) | payer MEDICAID, SELFPAY ==
[2024-09-03] MEDS: NATALIZUMAB 300 MG in Normal Saline 100 ML 115 MG IV (10:47)
[2024-09-03] MEDS: Normal Saline Flush 10 ML SYR IVP (10:47)
[2024-09-18 11:23] LABS: Misc Referral (UVM) See Comments
== END 2024-09-19 23:59 | disposition home or self-care (01) ==
LOC: INF 01:33
PROVIDERS: Psychiatry & Neurology Neurology; PCP Family Medicine Adult Medicine; Visit Provider Family Medicine
DX: G35 Multiple sclerosis (principal)
CPT/HCPCS: 86711; 96365; J2323

== ENCOUNTER 2024-10-16 00:38 | Outpatient (RCR) | payer MEDICAID, SELFPAY ==
[2024-10-16 09:23] VITALS: BP 124/79; PULSE 62; RESP 20; TEMP 36.6; O2SAT 99
[2024-10-16] MEDS: NATALIZUMAB 300 MG in Normal Saline 100 ML 115 MG IV (09:27)
[2024-10-16 10:25] VITALS: BP 116/74; PULSE 64; RESP 20; TEMP 37.3; O2SAT 100
[2024-10-16] MEDS: Normal Saline Flush 10 ML SYR IVP (11:07)
== END 2024-10-19 23:59 | disposition home or self-care (01) ==
LOC: INF 00:38
PROVIDERS: PCP Family Medicine Adult Medicine; Visit Provider Family Medicine
DX: G35 Multiple sclerosis (principal)
CPT/HCPCS: 96365; J2323

== ENCOUNTER 2024-11-27 00:59 | Outpatient (RCR) | payer MEDICAID, SELFPAY ==
[2024-11-27 10:15] VITALS: BP 122/82; PULSE 66; RESP 20; TEMP 36.6; O2SAT 100
[2024-11-27] MEDS: NATALIZUMAB 300 MG in Normal Saline 100 ML 115 MG IV (10:21)
[2024-11-27] MEDS: Normal Saline Flush 10 ML SYR IVP (10:47)
[2024-11-27 11:28] VITALS: BP 134/82; PULSE 67; RESP 20; TEMP 36.8; O2SAT 96
== END 2024-12-20 23:59 | disposition home or self-care (01) ==
LOC: INF 00:59
PROVIDERS: PCP Family Medicine Adult Medicine; Visit Provider Family Medicine
DX: G35 Multiple sclerosis (principal)
CPT/HCPCS: 96365; J2323

== ENCOUNTER 2025-01-08 00:18 | Outpatient (RCR) | payer MEDICAID, SELFPAY ==
[2025-01-08] MEDS: NATALIZUMAB 300 MG in Normal Saline 100 ML 115 MG IV (10:16)
[2025-01-08] MEDS: Normal Saline Flush 10 ML SYR IVP (10:16)
== END 2025-01-19 23:59 | disposition home or self-care (01) ==
LOC: INF 00:18
PROVIDERS: PCP Family Medicine Adult Medicine; Visit Provider Family Medicine
DX: G35 Multiple sclerosis (principal)
CPT/HCPCS: 96365; J2323

== ENCOUNTER 2025-02-19 00:50 | Outpatient (RCR) | payer MEDICARE, MEDICAID, SELFPAY ==
[2025-02-19] MEDS: NATALIZUMAB 300 MG in Normal Saline 100 ML 115 MG IV (10:37)
[2025-02-19] MEDS: Normal Saline Flush 10 ML SYR IVP (10:37)
== END 2025-02-19 23:59 | disposition home or self-care (01) ==
LOC: INF 00:50
PROVIDERS: PCP Family Medicine Adult Medicine; Visit Provider Family Medicine
DX: G35.D Multiple sclerosis, unspecified (principal)
CPT/HCPCS: 96365; J2323

== ENCOUNTER 2025-04-02 00:22 | Outpatient (RCR) | payer MEDICARE, SELFPAY ==
[2025-04-02] MEDS: Normal Saline Flush 10 ML SYR IVP (10:47)
[2025-05-10 09:21] LABS: Index Value 0.21 (<0.20)
== END 2025-04-21 23:59 | disposition home or self-care (01) ==
LOC: INF 00:22
PROVIDERS: Psychiatry & Neurology Neurology; PCP Family Medicine Adult Medicine; Visit Provider Family Medicine
DX: G35.D Multiple sclerosis, unspecified (principal)
CPT/HCPCS: 36415; 86711